=== PATIENT | male | born 2005 | race Caucasian/White ===

== ENCOUNTER 2024-01-23 15:35 | Emergency (ER) | payer SELFPAY ==
[~2024-01-23] VITALS: Ht 165.1 cm; Wt 71.6 kg
[2024-01-23 15:36] VITALS: O2SAT 99
[2024-01-23 19:16] VITALS: BP 131/78; TEMP 98.2
== END 2024-01-23 19:30 | disposition home or self-care (01) ==
LOC: M ED 15:35
DX: S91.202A Unspecified open wound of left great toe with damage to nail, initial encounter (principal); Y92.019 Unspecified place in single-family (private) house as the place of occurrence of the external cause; Y93.9 Activity, unspecified; Y99.9 Unspecified external cause status

== ENCOUNTER → 2024-08-01 | Outpatient (REF) | payer OTHER, SELFPAY ==
[2024-08-01 17:55] LABS: BASO # 0.1 10^3/uL (0.0-0.2); BASO % 0.9 % (0.0-1.0); EOS # 0.1 10^3/uL (0.0-0.5); EOS % 1.8 % (0.0-3.0); HEMATOCRIT 45.9 % (42.0-52.0); HEMOGLOBIN 16.3 g/dl (13.5-17.5); LYMPH # 2.4 10^3/uL (1.5-5.0); LYMPH % 43.5 % (24.0-44.0); MEAN CORPUSCULAR HEMOGLOBIN 32.1 pg (27.0-33.0); MEAN CORPUSCULAR HGB CONC 35.5 g/dl (32.0-36.5); MEAN CORPUSCULAR VOLUME 90.4 fl (80.0-96.0); MONO # 0.4 10^3/uL (0.0-0.8); MONO % 7.8 % (2.0-8.0); NEUTROPHILS # 2.6 10^3/uL (1.5-8.5); NEUTROPHILS % 45.8 % (36.0-66.0); PLATELET COUNT, AUTOMATED 262 10^3/uL (150-450); RED BLOOD COUNT 5.08 10^6/uL (4.30-6.10); WHITE BLOOD COUNT 5.6 10^3/uL (4.0-10.0)
[2024-08-01 18:26] LABS: BLOOD UREA NITROGEN 12 MG/DL (9-23); CALCIUM LEVEL 9.6 MG/DL (8.5-10.1); CARBON DIOXIDE LEVEL 30 MMOL/L (20-31); CHLORIDE LEVEL 106 MMOL/L (98-107); CHOLESTEROL LEVEL 204 MG/DL (<200); CHOLESTEROL RISK RATIO 3.64 (<5); FOLATE 22.3 NG/ML (>5.4); GLUCOSE, FASTING 83 MG/DL (60-100); LDL CHOLESTEROL 103.6 MG/DL (<100); MAGNESIUM LEVEL 2.2 MG/DL (1.8-2.4); POTASSIUM SERUM 4.3 MMOL/L (3.5-5.1); SODIUM LEVEL 143 MMOL/L (136-145); TRIGLYCERIDES LEVEL 222 MG/DL (<150); VITAMIN B12 LEVEL 751 PG/ML (211-911)
[2024-08-01 19:07] LABS: HEMOGLOBIN A1c 4.8 % (4.0-6.0)
== END ==
LOC: M LAB REF 16:26
PROVIDERS: ATTEND Nurse Practitioner Family
DX: R61 Generalized hyperhidrosis (principal); R53.83 Other fatigue; R51.9 Headache, unspecified; Z13.6 Encounter for screening for cardiovascular disorders; Z11.9 Encounter for screening for infectious and parasitic diseases, unspecified